=== PATIENT | female | born 1960 | race Caucasian/White ===

== ENCOUNTER 2019-12-01 09:56 | Day surgery (SDC) | payer BC ==
[~2019-12-01] VITALS: Ht 162.6 cm; Wt 64.5 kg
[2019-12-01 10:37] VITALS: BP 148/78; PULSE 78; TEMP 98.1
[2019-12-01] MEDS ORDERED: PRINZIDE 12.5 M1 TAB PO (10:57)
[2019-12-01] MEDS ORDERED: VOLTAREN GEL 1%1 TU TP (10:58)
[2019-12-01 13:29] VITALS: BP 135/67; PULSE 80
--- NOTE | 2019-12-01 13:29 | NUR ---
Returns to room 2 per cart from surgery and is awake and alert. Temp 97.7 and room air sats 97%. Foot of cart elevated. Tye wrap dressing dry on the right foot and post op shoe in place. Toes warm and pink. Siderails up x2 and call light in reach.
[2019-12-01 13:44] VITALS: BP 149/62; PULSE 71
--- NOTE | 2019-12-01 13:44 | NUR ---
Eating chocolate pudding and drinking Sprite. Denies pain or nauesea.
--- NOTE | 2019-12-01 13:59 | NUR ---
Room air sats 99%. Tolerated pudding and Sprite. States that she is ready to go home. IV to INT and patient dresses self.
[2019-12-01] MEDS ORDERED: PERCOCET 325 MG1 TA2 PO (14:15)
--- NOTE | 2019-12-01 14:25 | NUR ---
Given dismissal instructions and voices understanding of these. INT discontinued and site is free of redness.
--- NOTE | 2019-12-01 14:30 | NUR ---
Patient dismissed to home per private vehicle driven by daughter and taken to the front door per wheelchair and assisted into car with dismissal instructions in hand. Patient was provided script for Percocet.
== END 2019-12-01 14:30 | disposition home or self-care (01) ==
LOC: SDCO 09:56
DX: M20.41 Other hammer toe(s) (acquired), right foot (principal); M25.774 Osteophyte, right foot; I10 Essential (primary) hypertension; Z88.0 Allergy status to penicillin; Z88.1 Allergy status to other antibiotic agents; Z91.040 Latex allergy status; Z79.899 Other long term (current) drug therapy
CPT/HCPCS: J2405; J2704; J3010; J7120